=== PATIENT | female | born 1990 | race Caucasian/White ===

== ENCOUNTER 2017-04-12 22:36 | Emergency (ER) | payer MEDICAID ==
[2017-04-13 09:54] VITALS: BP 103/75; PULSE 89; RESP 17; TEMP 98.2
--- NOTE | 2017-04-13 17:40 | OBHP ---
Datetime: 04/12/2017 23:22 IP Adm Impression: , intrauterine IP Admit Plan: Observation/Evaluation Admit Comment, IP Provider: 26 yo G1PO at 27.6 weeks GA based on first trimester US, not consistent with LMP, EDC 07/06/17 presents to [facility] c/o decreased FM for last 2 days. Pt reports last fm felt at 3 pm this afternoon. States she felt FM as soon as she came to [facility]. Denies LOF, VB, abominal pain or CTX. Denies dysuria, headache or dizziness. PNC: [facility], last visit 03/19/17, next vist 04/16/17 Past obhx: G1 Past gynhx: denies hx STI. Hx abnormal pap, last pap was normal as per pt. hx ovarian cyst pmhx: PCOS pshx: ovarian cystectomy in 2004 social: denies smoking cigrettes, ETOH or recretional drug use. family hx: maternal grandfather: DMII. Meds: PNV allergies: NKDA Assessment: 26 yo IUP @ 27.6 weeks GA, presents for decreased FM. Plan: Re-assuring heart tracing. Pt reports +fm in [facility]. Has appointment at [facility] on 04/16/17 Advised for adequate hydration labor precaution given Case d/w on-call OB hospitalist Dr. James Cosme, PGY1 OB Hospitaslist media relations intern...with PGY1 I saw and examined this pt. She stated param she felt +FM. MAHN DO Extremities - PN: Normal Abdomen - PN: Normal Back - PN: Normal Lungs - PN: Normal Heart - PN: Normal Neurologic - PN: Normal HEENT - PN: Normal General - PN: Normal FHR - Baseline A Provider: 130s IP Hx Assessment: The History has been Reviewed and is Current EGA AdmitDate IP: 28.0 IP Chief Complaint: Decreased movement NICHD Variability Prov Fetus A: Moderate 6-25bpm NICHD Accel Fetus A IP Provider: 10X10 FHR Category Provider Fetus A: Category I NICHD Decel Fetus A IP Provider: None Genitourinary Exam: Normal DTRs - PN: Normal
--- NOTE | 2017-04-13 17:40 | OBDCSUM ---
Datetime: 04/12/2017 23:42 Discharge Diagnosis Prov Other: decreased movement
== END 2017-04-12 23:45 | disposition home or self-care (01) ==
LOC: H.EROB2 22:36
DX: O36.8121 Decreased fetal movements, second trimester, fetus 1 (principal); Z3A.27 27 weeks gestation of pregnancy

== ENCOUNTER 2017-07-02 15:31 | Emergency (ER) | payer MEDICAID ==
[2017-07-02 21:20] VITALS: BP 108/79; PULSE 94; RESP 18; TEMP 97.7; O2SAT 99
--- NOTE | 2017-07-03 08:25 | OBDCSUM ---
Datetime: 07/02/2017 16:36 Discharge Diagnosis, Provider: False Labor - Undelivered
--- NOTE | 2017-07-03 08:25 | OBHP ---
Datetime: 07/02/2017 16:30 IP Adm Impression: Term, intrauterine ; No Active Labor; Intact Membranes IP Admit Plan: Discharge home Admit Comment, IP Provider: 26 y/o F at 39+3 week GA with a SHIRA 07/06/17 by 1st trim US, compl ains of LOF since last night. FLuid is scant, non-bloody and white clear in color. Pt reports no CTX but explains having pelvic pressure-like pain intermittently daily. No vaginal bleeding. FM present. Pt denies fever, headache, CP, SOB, abdominal pain, urinary complaints or pruritus. NKDA Medications: PNV PN Care: Dr Plasencia at the women's center at [facility]. PN Labs: remarkable for GBS positive and Rubella Non-immune. PMHx: PCOS PSHx: denied FHx: mother with pre-diabetes SHx: denies tobacco, alcohol or rec drugs. A/P 26 y/o F with IUP at 39.3 weeks GA, not in early labor. -discharge home. -Increase water intake. -ER precautions discussed with pt. -F/U with Dr Almanzar in 2 days as planned. Case discussed with Dr Ramirez, OB elevator constructor helper Doe PGY-1 OB Hosptialist on-call. With PGY1, I saw and examined this patinet. Agree with note. DONI No evidence of ROM Pelvic Type - PN: Adequate Extremities - PN: Normal Abdomen - PN: Normal Back - PN: Normal Breast - PN: Not Done Lungs - PN: Normal Heart - PN: Normal Thyroid - PN: Normal Neurologic - PN: Normal HEENT - PN: Normal General - PN: Normal Presentation-Admit: Vertex FHR - Baseline A Provider: 145 Membranes, Provider: Intact Comments, ACOG Physical Exam: Plevic exam: Speculum with negative pooling. Nitrazine not performed a s previously positive. Ferning test was negative. Pool Provider: Negative Ferning Provider: Negative IP Hx Assessment: The History has been Reviewed and is Current EGA AdmitDate IP: 39.3 Vital Signs Provider: Reviewed IP Chief Complaint: Suspected ruptured membranes NICHD Variability Prov Fetus A: Moderate 6-25bpm NICHD Accel Fetus A IP Provider: 15X15 FHR Category Provider Fetus A: Category I Dilatation, Provider: 0 Genitourinary Exam: Normal
== END 2017-07-02 16:25 | disposition home or self-care (01) ==
LOC: H.EROB2 15:31
DX: O47.1 False labor at or after 37 completed weeks of gestation (principal); Z3A.39 39 weeks gestation of pregnancy; O26.93 Pregnancy related conditions, unspecified, third trimester; R10.2 Pelvic and perineal pain

== ENCOUNTER 2017-07-09 17:45 | Emergency (ER) | payer MEDICAID ==
--- NOTE | 2017-07-09 19:41 | OBDCSUM ---
Datetime: 07/09/2017 18:20 Discharged to, Provider: Home Follow up at, Provider: With U/S in 2 days Disch Instr Activity: Normal activity Disch Instr Diet: Regular Discharge Instructions, Provider: Routine instructions given Discharge Time: 07/09/2017 18:30 Follow up in weeks, Provider: Come in for IOL on Saturday Disch Referrals: None Discharge Diagnosis Prov Other: Reactive NST
--- NOTE | 2017-07-09 19:42 | OBHP ---
Datetime: 07/09/2017 18:10 IP Adm Impression: Term, intrauterine IP Chief Complaint Other: Non-reactive NST IP Admit Plan: Observation/Evaluation Admit Comment, IP Provider: 26 y/o F at 40+3 week GA with an SHIRA 07/06/[address] [place] [address], was sent from office due to non-reactive NST. Pt reports she felt a movement at 7 am this morning f or the last time. Pt intermittent pelvic pressure pain, no vaginal bleeding and no LOF. Pt has been s cheduled for IOL on 07/13/17 due to post-term . Pt denies fever, headache, CP, SOB, abdomina l pain, urinary complaints or pruritus. NKDA Medications: PNV PN Care: Dr Plasencia at the women's center at [facility]. PN Labs: remarkable for GBS positive and Rubella Non-immune. OBHx: PMHx: PCOS PSHx: denied FHx: mother with pre-diabetes SHx: denies tobacco, alcohol or rec drugs. A/P 26 y/o F with IUP at 40.3 weeks GA, with non-reactive NST at office. -FHT monitoring -Provide PO fluid intake. Case discussed with Dr Ramirez, OB reading intervention teacher Doe PGY-1 OB Hospitalist note : I saw this patient and reviewed NST. She deceleidn vaginal exam becasue she has no complaints. Agree with note. MAHNDO Pelvic Type - PN: Adequate Extremities - PN: Normal Abdomen - PN: Normal Breast - PN: Not Done Lungs - PN: Normal Heart - PN: Normal Thyroid - PN: Normal HEENT - PN: Normal General - PN: Normal Presentation-Admit: Vertex Contraction Comments Provider: occ Pool Provider: Negative IP Hx Assessment: The History has been Reviewed and is Current EGA AdmitDate IP: 40.3 Vital Signs Provider: Reviewed; Within Normal Limits IP Chief Complaint: Decreased movement; Other FHR Category Provider Fetus A: Category I NICHD Decel Fetus A IP Provider: None
[2017-07-09 23:08] VITALS: BP 101/79; PULSE 84; O2SAT 100
== END 2017-07-09 18:30 | disposition home or self-care (01) ==
LOC: H.EROB2 17:45
DX: O76 Abnormality in fetal heart rate and rhythm complicating labor and delivery (principal); O48.0 Post-term pregnancy; Z3A.40 40 weeks gestation of pregnancy

== ENCOUNTER 2017-07-11 14:16 | Inpatient (IN) | payer MEDICAID ==
[2017-07-11] MEDS: Lactated Ringer's 1,000 ML IV SCH ×3 (15:00→19:00)
[2017-07-11 15:14] VITALS: BMI 36.6
[2017-07-11 15:40] LABS: BASO # 0.1 K/uL (0.0-0.2); BASO % 0.4 % (0.0-2.0); EOS # 0.2 K/uL (0.0-0.7); EOS % 1.5 % (0.0-4.0); HEMOGLOBIN 12.7 g/dL (12.0-16.0); LYMPH # 2.8 K/uL (1.0-4.3); LYMPH % 19.7 % (20.0-40.0); MEAN CORPUSCULAR HGB CONC 32.5 g/dL (33.0-37.0); MEAN PLATELET VOLUME 8.4 fl (7.2-11.7); MONO # 1.1 K/uL (0.0-0.8); MONO % 8.2 % (0.0-10.0); NEUT # 9.8 K/uL (1.8-7.0); NEUT % 70.2 % (50.0-75.0); NRBC % 0.4 % (0.0-0.0); RBC 5.07 Mil/uL (3.80-5.20); RED CELL DISTRIBUTION WIDTH 16.2 % (11.5-14.5)
--- NOTE | 2017-07-11 17:56 | OBHP ---
Datetime: 07/11/2017 17:17 IP Adm Impression: Postterm, intrauterine IP Admit Plan: Initiate labor induction protocol; Observation/Evaluation Admit Comment, IP Provider: 26 y G1 at 40+5 wks w/ EDC 07/06/17 by 6 wk u/s who p/w light VB this am , also having bad pains in back and in lower abdomen that started about 2 days ago and became worse l ast night. Pt denies LOF, recent sex, reports FM. Pt also reports pain in abdomen during urination t baljit. 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 periods after weight loss, denies STDs, reports abn pap in 2008 LSIL, nl sinc e Fam hx: N/c Soc hx: Pt denies tobacco, alcohol, and illicit drug use PE: AFVSS Gen'l: Pt appears confortable Heart: RRR Chest: Lungs CTA b/l Abdomen: soft, NT, gravid Ext: NT, no edema Speculum: no blood in vault VE: /-3 at 5 pm EFM: as above [place]: difficult to discern A/P: 26 yo G1 at 40+5 wks w/ light vaginal bleeding and abdominal pain today Will admit this pt for induction of labor d/t a few variable decelerations noted GBS positive, will start penicillin for GBS prophylaxis Will start induction w/ cervidil Extremities - PN: Normal Abdomen - PN: Normal Lungs - PN: Normal Heart - PN: Normal General - PN: Normal FHR - Baseline A Provider: 150 Membranes, Provider: Intact EGA AdmitDate IP: 40.5 Vital Signs Provider: Reviewed; Within Normal Limits IP Chief Complaint: Uterine contractions; Vaginal bleeding NICHD Variability Prov Fetus A: Moderate 6-25bpm NICHD Accel Fetus A IP Provider: 15X15 FHR Category Provider Fetus A: Category II NICHD Decel Fetus A IP Provider: Variable Dilatation, Provider: 1 Effacement, Provider: 70 Station, Provider: -3 Genitourinary Exam: Normal
[2017-07-11 19:13] LABS: SQUAMOUS EPITHIAL 1 /hpf (0-5); URINE BILIRUBIN NEGATIVE (NEGATIVE); URINE BLOOD NEGATIVE (NEGATIVE); URINE CLARITY SLIGHTY-CLOUDY (Clear); URINE COLOR YELLOW (YELLOW); URINE GLUCOSE (UA) NEG (Normal); URINE LEUKOCYTE ESTERASE NEG Leu/uL (Negative); URINE PROTEIN NEGATIVE (NEGATIVE); URINE UROBILINOGEN 0.2-1.0 mg/dL (0.2-1.0)
[2017-07-11] MEDS ORDERED: Penicillin G 5 Million Unit Vial IVPB ONE (21:08)
--- NOTE | 2017-07-11 23:29 | HP ---
HISTORY OF PRESENT ILLNESS: This is a 26-year-old G1 at 40 weeks and 5 days with an EDC of 07/06/2017 by 6-week ultrasound who presents with light vaginal bleeding this a.m., also having bad pain in back and in lower abdomen that started about 2 days ago and became worse last night. The patient denies leaking of fluid and reports movement. The patient also reports pain in her abdomen during urination today. The patient receives her care with the [facility]. The patient was diagnosed with PCOS at age 11. She was on metformin 500 mg once a day and stopped it after the first trimester. In 2008, the patient had a low-grade Pap, per patient, no colpo was necessary and she has been followed up every year since and her Paps have been normal. There is diabetes in her family and her BMI was 30. The patient early one-hour Glucola done on 11/28/2016, which was 87. The patient's rubella is nonimmune. The patient is to receive the MMR vaccine . The patient has been noncompliant with her care and has missed several appointments. The patient is also an alpha thalassemia carrier. Father of baby was not tested. Also, the patient received her flu vaccine on 03/19/2017 and received her Tdap vaccine on 06/11/2017. GBS is positive, done on 2017. PAST MEDICAL HISTORY: PCOS. PAST SURGICAL HISTORY: Open right (? ) ovarian cystectomy in 2004. GYNECOLOGIC HISTORY: Menarche at 11. Monthly periods after weight loss, otherwise irregular. The patient denies any STDs and reports a low-grade LITZY Pap in 2008 and normal Paps since. FAMILY HISTORY: Father with hypertension, mother with prediabetes, and paternal grandmother with diabetes. SOCIAL HISTORY: The patient denies tobacco, alcohol, or illicit drug use. MEDICATIONS: vitamins. ALLERGIES: NO KNOWN DRUG ALLERGIES. PHYSICAL EXAMINATION: VITAL SIGNS: Afebrile and vital signs are stable. GENERAL: The patient appears comfortable, lying in bed. HEART: Regular rate and rhythm. CHEST: Lungs are clear to auscultation bilaterally. ABDOMEN: Soft, nontender, and gravid. EXTREMITIES: Nontender. No edema. SPECULUM: No blood in the vault. VAGINAL: 1 cm, 70% effaced, and -3 station at 5 p.m. EXTERNAL MONITORING: The baseline is 150 with moderate variability and positive accelerations. There does appear to be a few scattered variable decelerations throughout the strip. Tocodynamometer is difficult to discern contractions and there are appears to be irritability and occasional contractions. LABORATORY DATA: On 11/28/2016, one-hour Glucola was 87. Cystic fibrosis negative. Hepatitis B surface antigen negative. Blood type B positive. Antibody screen negative. RPR negative. Rubella nonimmune. On 12/06/2016, first trimester screen was negative. Chlamydia and gonorrhea were negative. On 03/27/2017, alpha thalassemia was positive. On 05/01/2017, HIV negative. RPR negative. One-hour Glucola was 98. On 06/11/2017, group B Streptococcus was positive. Gonorrhea and chlamydia negative. ASSESSMENT AND PLAN: This is a 26-year-old G1 at 40 weeks and 5 days with light vaginal bleeding and abdominal pain today, also complaining of abdominal pain with urination. Will admit this patient for induction of labor due to a few variable decelerations noted on the strip. Urinalysis and urine culture sent. GBS positive. Will start penicillin for GBS prophylaxis. Will start induction with Cervidil. Lucy Tabares MD MTDD
[2017-07-12] MEDS ORDERED: Bupivacaine HCl 0.25% PF (10 ml) Inj ONE ×2 (00:36→03:11)
[2017-07-12] MEDS ORDERED: Phenylephrine 10 mg/ml Inj ONE (00:38)
[2017-07-12] MEDS: Lactated Ringer's 1,000 ML IV SCH (01:00)
[2017-07-12] MEDS ORDERED: Fentanyl/Bupivacaine HCl 250 ML EPI ONE (01:37)
[2017-07-12] MEDS ORDERED: Fentanyl/Bupivacaine HCl 125 ML EPI ONE (01:40)
[2017-07-12] MEDS: Penicillin G Potassium 2.5 MU in Sodium Chloride 0.9% 100 ML IVPB SCH ×2 (02:00→05:42)
[2017-07-12] MEDS ORDERED: Lidocaine 1% Inj (20ml) ONE (05:16)
[2017-07-12] MEDS ORDERED: Oxycodone/Acetaminophen 5/325 mg Tab PO PRN ×2 (07:09→08:53)
[2017-07-12] MEDS ORDERED: Benzocaine/Menthol SPRAY TOP PRN ×2 (07:09→08:53)
--- NOTE | 2017-07-12 07:47 | OBDS ---
DELIVERY PERSONNEL Delivery Doctor: Madeleine Tabares MD Operations Business Partner: Randell Villafuerte RN, Tristian RN, Davon JAMES Anesthesiologist: Dr. Romero Resident: Dr. Sultan Cosme MATERNAL INFORMATION Delivery Anesthesia: Local; Epidural Medications in Delivery: Pitocin Placenta Cultured: No Maternal Complications: None Provider Comments: Pt progressed to complete and pushed to deliver a viable female in the bed through meconium-stained fluid at 06:33 am. Eulogio Villafuerte RN was present at the bedside. Apgars 9 and 9. Wt 7#8.6. 3420 gms. Cord doubly clamped and FOB cut the cord. Placenta delivered spontaneo usly intact w/a 3vc at 06:37am. Vagina and perineum infused w/ 1% lidocaine. Second degree tear re paired w/ 2-0 rapide and 3-0v. Bilateral periurethral abrasions were hemostatic. Pt and baby tolera edmund procedure well. Rectum intact. EBL 150 mL LABOR SUMMARY EDC: 07/06/2017 00:00 No. Babies in Womb: 1 Attempted: No Labor Anesthesia: Epidural LABOR INFORMATION Reason for Induction: Postterm Onset of Labor: 07/11/2017 15:00 Complete Dilatation: 07/12/2017 06:00 Cervical Ripening Agents: Cervidil (Annotations: Cervidil Removed ) Oxytocin: Induction Group B Beta Strep: Positive Antibiotics # of Doses: 3 Pen G Antibiotics Time of Last Dose: 0542 Steroids Given: None Reason Steroids Not Administered: Not Applicable MEMBRANES Membranes Rupture Method: Spontaneous Rupture of Membranes: 07/12/2017 06:33 Length of Rupture (hrs): 0.00 Amniotic Fluid Color: Light Meconium Amniotic Fluid Amount: Moderate Amniotic Fluid Odor: Normal STAGES OF LABOR Stage 1 hrs: 15 Stage 1 min: 0 Stage 2 hrs: 0 Stage 2 min: 33 Stage 3 hrs: 0 Stage 3 min: 4 Total Time in Labor hrs: 15 Total Time in Labor min: 37 BABY A INFORMATION Infant Delivery Date/Time: 07/12/2017 06:33 Method of Delivery: Vaginal Born in Route : No : N/A Forceps: N/A Vacuum Extraction: N/A Shoulder Dystocia : No SHOULDER DYSTOCIA BABY A Infant Delivery Date/Time: 07/12/2017 06:33 PRESENTATION/POSITION BABY A Presentation: Cephalic Cephalic Presentation: Vertex Breech Presentation: N/A PLACENTA INFORMATION BABY A Placenta Delivery Time : 07/12/2017 06:37 Placenta Method of Delivery: Spontaneous Placenta Status: Delivered SCORES BABY A Heart Rate 1 min: >100 bpm Resp Effort 1 min: Good Cry Reflex Irritability 1 min: Cough or Sneeze or Pulls Away Muscle Tone 1 min: Active Motion Color 1 min: Body [place], Extremities Blue (Annotations: Data stored by N on behalf of user) SCORE 1 MIN: 9 INFORMATION BABY A Gestational Age at Delivery: 40.6 Gestational Status: Term Outcome : Liveborn Condition : Stable Infant Sex: Female IDENTIFICATION/MEDS BABY A ID Band Number: [id number] ID Band Location: Left Leg; Left Arm WEIGHT/LENGTH BABY A Birthweight (gms): 3420 Infant Weight (lb): 7 Infant Weight (oz): 9 CORD INFORMATION BABY A No. Cord Vessels: 3 Nuchal Cord : N/A Cord Blood Taken: Yes Suction: Mouth; Nose
[2017-07-13 06:39] LABS: HEMOGLOBIN 10.6 g/dL (12.0-16.0); MEAN CELL VOLUME 77.6 fl (81.0-99.0); MEAN CORPUSCULAR HEMOGLOBIN 25.1 pg (27.0-31.0); MEAN CORPUSCULAR HGB CONC 32.4 g/dL (33.0-37.0); RBC 4.23 Mil/uL (3.80-5.20); RED CELL DISTRIBUTION WIDTH 16.3 % (11.5-14.5); WHITE BLOOD COUNT 17.5 K/uL (4.8-10.8)
--- NOTE | 2017-07-13 10:48 | OBPPN ---
Datetime: 07/13/2017 06:21 PP Pain Prov: Within normal limits PP Nausea Prov: Denies PP Flatus Prov: Yes PP BM Prov: No PP Breasts Prov: Normal PP Heart Prov: Normal PP Lungs Prov: Normal PP Abdomen/Uterus Prov: Normal PP Lochia Prov: Normal PP CVA Tenderness Prov: Normal PP Extremities Prov: Normal PP Impression Prov: Normal progression PP Plan Prov: Continue present management; consult PP Progress Note Prov: PPD 1 26 y/o female now s/p on PPD 1 seen and examined at bedside this morning. No overnigh t events. Reports pain is controlled with pain medications. Pt reports passing gas per rectum but no BM yet. Voiding freely w/o blood noted. Ambulating well w/o dizziness. Lochia is similar to menses vo lume. Pt is not the baby. Denies nausea, vomiting, fever, chills, chest pain or calf p ain. Physical Exam: General: A_O, resting comfortably in bed, NAD HEENT: oral mucosa moist. Lungs: CTA B/L, no wheezing, rhonchi or rales CVS: RRR, S1, S2 ABD: ND, +BS, firm fundus @ umbilical level. Soft, appropriate TTP. EXT: no edema, negative Mazin's sign Neuro/psych: AAOX3 Assessment: 26 y/o female now doing well on PPD 1 Plan: OOB w/ caution Regular diet Ibuprofen and percocet for pain management Senokot for constipation consults for Encourage and ambulation Anticipate discharge tomorrow Case d/w on-call OB Hospitalist Sultan Cosme, pgy-1 ob attending addendum: pt seen _ examined by me. agree /w above assessment and plan. IP PP Procedures: None Vital Signs Provider PP: Reviewed
[2017-07-14] MEDS ORDERED: Measles, Mumps, and Rubella 0.5 ML VIAL SC ONE (08:07)
[2017-07-14 19:38] VITALS: BP 110/64; PULSE 89; RESP 20; TEMP 98.4; O2SAT 98
== END 2017-07-14 12:10 | disposition home or self-care (01) | DRG 373 ==
LOC: H.EROB2 14:16 → H.L&D 17:51 → H.OB/GYN 07-12 08:39
PROVIDERS: ADMIT Obstetrics & Gynecology; ATTEND Obstetrics & Gynecology
PROC: 10E0XZZ Delivery of Products of Conception, External Approach (ICD-10-PCS; principal; 2017-07-11)
PROC: 4A1HXCZ Monitoring of Products of Conception, Cardiac Rate, External Approach (ICD-10-PCS; 2017-07-11)
PROC: 0KQM0ZZ Repair Perineum Muscle, Open Approach (ICD-10-PCS; 2017-07-11)
DX: O76 Abnormality in fetal heart rate and rhythm complicating labor and delivery (principal); D56.0 Alpha thalassemia; Z37.0 Single live birth; O70.1 Second degree perineal laceration during delivery; O77.0 Labor and delivery complicated by meconium in amniotic fluid; Z3A.40 40 weeks gestation of pregnancy; O99.824 Streptococcus B carrier state complicating childbirth; Z91.19 Patient's noncompliance with other medical treatment and regimen; Z83.3 Family history of diabetes mellitus; Z82.49 Family history of ischemic heart disease and other diseases of the circulatory system; Z79.84 Long term (current) use of oral hypoglycemic drugs

== ENCOUNTER 2017-09-02 09:01 | Emergency (ER) | payer MEDICAID ==
[2017-09-02 09:08] VITALS: BMI 34.9
--- NOTE | 2017-09-02 09:36 | ED PDOC ---
HPI: Back Time Seen by Provider: 09/02/17 09:25 History Per: Patient Current Symptoms Are (Timing): Still Present Quality Of Discomfort: Aching Severity: Mild Pain Scale Rating Of: 2 Previous Symptoms: Back Pain Associated Symptoms: None Exacerbating Factor(s): Movement Additional Complaint(s): Left sided low back pain radiating down left leg to foot. Started at end of pregnacy. No weakness or parasthesias. No urinary sxs or incontinence. No fever. No calf pain. Past Medical History Vital Signs: Last Vital Signs Temp 97.9 F 09/02/17 09:09 Pulse 64 09/02/17 09:09 Resp 20 09/02/17 09:09 BP 111/68 09/02/17 09:09 Pulse Ox 99 09/02/17 09:09 - Medical History PMH: No Chronic Diseases Denies: Depression, Diabetes, HTN - Family History Family History: States: Unknown Family Hx - Immunization History Hx Tetanus Toxoid Vaccination: No Hx Influenza Vaccination: No Hx Pneumococcal Vaccination: No - Home Medications Home Medications: Ambulatory Orders Medication Instructions Recorded Vit Calc,Iron,Folic 1 tab PO DAILY #30 tablet 11/10/16 [ Vitamins] Cefpodoxime [Vantin] 100 mg PO BID #14 tab 01/22/17 Ibuprofen [Motrin Tab] 600 mg PO Q6 PRN tab 07/14/17 Sennosides A and B [Senokot Tab] 17.2 mg PO HS tab 07/14/17 Cyclobenzaprine [Cyclobenzaprine 10 mg PO TID #10 tab 09/02/17 HCl] Naproxen [Naprosyn] 500 mg PO Q12H #20 tab 09/02/17 - Allergies Allergies/Adverse Reactions: Allergies Allergy/AdvReac Type Severity Reaction Status Date / Time No Known Allergies Allergy Verified 01/22/17 17:00 Review of Systems Constitutional: Negative for: Fever, Chills Genitourinary Female: Negative for: Dysuria, Frequency Musculoskeletal: Positive for: Back Pain Neurological: Negative for: Weakness, Numbness Physical Exam - Physical Exam Appears: Positive for: Non-toxic, No Acute Distress Skin: Positive for: Normal Color, Warm, DRY Back: Positive for: Normal Inspection, Other (Left paravertebral tendeness lumbar area.). Negative for: Vertebral Tenderness Extremity: Negative for: Calf Tenderness, Swelling Neurologic/Psych: Positive for: Alert, Oriented. Negative for: Motor/Sensory Deficits - ECG O2 Sat by Pulse Oximetry: 99 Disposition - Clinical Impression Clinical Impression: Radiculopathy of lumbar region - Patient ED Disposition Is Patient to be Admitted: No Counseled Patient/Family Regarding: Diagnosis, Need For Followup, Rx Given - Disposition [facility]errals: [facility] [Outside] Disposition: Routine/Home Disposition Time: 09:36 Condition: FAIR Prescriptions: Cyclobenzaprine [Cyclobenzaprine HCl] 10 mg PO TID #10 tab Naproxen [Naprosyn] 500 mg PO Q12H #20 tab Instructions: Radiculopathy
[2017-09-02 09:52] VITALS: BP 128/78; PULSE 78; RESP 19; TEMP 97; O2SAT 98
== END 2017-09-02 10:00 | disposition home or self-care (01) ==
LOC: H.ER 09:01
DX: M54.16 Radiculopathy, lumbar region (principal)

== ENCOUNTER 2018-03-25 09:10 | Emergency (ER) | payer MEDICAID ==
[2018-03-25 09:37] VITALS: O2SAT 100
[2018-03-25 09:38] VITALS: BMI 32.8
--- NOTE | 2018-03-25 12:44 | US ---
Date of service: 03/25/2018 HISTORY: Intermittent left lower extremity pain 8 months duration. PRIORS: None. FINDINGS: 2-D, color and duplex Doppler analysis of the lower extremity venous circulation using routine protocol from the femoral veins through the popliteal veins. Venous compressibility: Normal. Flow and augmentation patterns: Normal. Visualized veins upper third of calf: Normal. Cho cyst: None. IMPRESSION: No sonographic or Doppler evidence for DVT in left lower extremity.
--- NOTE | 2018-03-25 12:55 | ED PDOC ---
Lower Extremity Pain/Injury Time Seen by Provider: 03/25/18 10:25 Chief Complaint (Nursing): Lower Extremity Problem/Injury History Per: Patient Additional Complaint(s): Pt. states for the past 2 weeks she's had atraumatic L calf pain. Reports pain is worse with movement and that pain is localized to the L leg. Denies trauma, fever, numbness, tingling, rash, chest pain, SOB, hx of DVT or PE. Past Medical History Reviewed: Historical Data, Nursing Documentation, Vital Signs Vital Signs: Last Vital Signs Temp 97 F L 03/25/18 09:36 Pulse 57 L 03/25/18 09:36 Resp 18 03/25/18 09:36 BP 113/74 03/25/18 09:36 Pulse Ox 100 03/25/18 09:36 - Medical History PMH: Denies: Depression, Diabetes, HTN - Family History Family History: States: No Known Family Hx - Immunization History Hx Tetanus Toxoid Vaccination: No Hx Influenza Vaccination: No Hx Pneumococcal Vaccination: No - Home Medications Home Medications: Ambulatory Orders Medication Instructions Recorded RX: Vit Calc,Iron,Folic 1 tab PO DAILY #30 tablet 11/10/16 [ Vitamins] RX: Cefpodoxime [Vantin] 100 mg PO BID #14 tab 01/22/17 RX: Ibuprofen [Motrin Tab] 600 mg PO Q6 PRN tab 07/14/17 RX: Sennosides A and B [Senokot 17.2 mg PO HS tab 07/14/17 Tab] Cyclobenzaprine [Cyclobenzaprine 10 mg PO TID #10 tab 09/02/17 HCl] Naproxen [Naprosyn] 500 mg PO Q12H #20 tab 09/02/17 Meloxicam [Mobic] 7.5 mg PO DAILY PRN #10 tab 03/25/18 - Allergies Allergies/Adverse Reactions: Allergies Allergy/AdvReac Type Severity Reaction Status Date / Time No Known Allergies Allergy Verified 01/22/17 17:00 Wells Criteria for PE - Wells Criteria for Pulmonary Embolism Clinical Signs and Symptoms of DVT: No P.E is #1 Diagnosis, or Equally Likely: No Heart Rate >100: No Immobilization at least 3 days;Surgery previous 4 weeks: No Previous, objectively diagnosed PE or DVT: No Hemoptysis: No Malignancy w/treatment within 6 months, or palliative: No Total Score: 0 Review of Systems ROS Statement: Except As Marked, All Systems Reviewed And Found Negative Musculoskeletal: Positive for: Leg Pain Physical Exam - Physical Exam Appears: Positive for: Well, Non-toxic, No Acute Distress Skin: Positive for: Normal Color, Warm. Negative for: Rash Eye Exam: Positive for: Normal appearance Pulses-Dorsalis Pedis (L): 2+ Pulses-Dorsalis Pedis (R): 2+ Extremity: Positive for: Normal ROM (FROM actively of b/l lower extremities), Capillary Refill (< 2 seconds of b/l lower extremities), Other (b/l lower extrem ities without swelling, deformity, warmth, erythema, break in skin integrity, lesions, tenderness). Negative for: Pedal Edema, Calf Tenderness (b/l) Neurologic/Psych: Positive for: Alert, Oriented (x3), Gait (steady, unassisted). Negative for: Aphasia, Facial Droop - Laboratory Results Result Diagrams: 03/25/18 14:01 03/25/18 14:01 - ECG O2 Sat by Pulse Oximetry: 100 - Progress ED Course And Treament: Duplex RLE vein, tib/fib (right) x-ray, labs, ultram ordered. On re-evaluation, pt. states pain has improved. Informed of results. Advised to f/u with PMD or ortho for further evaluation but is to return to ED immediately if ysmptoms worsen. Disposition - Clinical Impression Clinical Impression: Leg pain - Patient ED Disposition Is Patient to be Admitted: No - Disposition Referrals: [facility] [Outside] [facility], located within [facility] [Outside] Abram Nichols III, MD [Staff Provider] - Disposition: Routine/Home Disposition Time: 14:58 Condition: STABLE Additional Instructions: FOLLOW UP WITH PMD FOR FURTHER EVALUATION RETURN TO ED IMMEDIATELY IF SYMPTOMS WORSEN ISAURA WAGONER, thank you for letting us take care of you today. Your provider was Milagro Arnold MD and you were treated for LT LEG PAIN. The emergency medical care you received today was directed at your acute symptoms. If you were prescribed any medication, please fill it and take as directed. It may take several days for your symptoms to resolve. Return to the Emergency Department if your symptoms worsen, do not improve, or if you have any other problems. Please contact your doctor or call one of the physicians/clinics you have been referred to that are listed on the Patient Visit Information form that is included in your discharge packet. Bring any paperwork you were given at discharge with you along with any medications you are taking to your follow up visit. Our treatment cannot replace ongoing medical care by a primary care provider outside of the emergency department. Thank you for allowing the [facility] team to be part of your care today. If you had an X-Ray or CT scan: A Radiologist will review the ED reading if any change in treatment is needed we will contact you. If you had a blood, urine, or wound culture: It will take several days for the results, if any change in treatment is needed we will contact you. If you had an STI test: It will take 48 hours for the results. Please call after 1 week if you have not heard back. Prescriptions: Meloxicam [Mobic] 7.5 mg PO DAILY PRN #10 tab PRN Reason: Pain, Mild (1-3) Instructions: Muscle and Bone Pain (DC) Forms: [employer] ([place]an) Print Language: WELSH
--- NOTE | 2018-03-25 13:52 | RAD ---
Date of service: 03/25/2018 PROCEDURE: Radiographs of the left tibia and fibula. HISTORY: pain COMPARISON: None available. TECHNIQUE: Frontal and lateral views obtained. FINDINGS: BONES: No fracture or destructive lesion. JOINT SPACES: Unremarkable. OTHER FINDINGS: None. IMPRESSION: Unremarkable radiographs of the left tibia and fibula.
[2018-03-25 14:05] LABS: BASO # 0.1 K/uL (0.0-0.2); BASO % 0.8 % (0.0-2.0); EOS # 0.4 K/uL (0.0-0.7); EOS % 5.6 % (0.0-4.0); HEMOGLOBIN 13.4 g/dL (12.0-16.0); LYMPH # 3.2 K/uL (1.0-4.3); LYMPH % 39.4 % (20.0-40.0); MEAN CELL VOLUME 81.6 fl (81.0-99.0); MEAN CORPUSCULAR HGB CONC 31.8 g/dL (33.0-37.0); MEAN PLATELET VOLUME 7.8 fl (7.2-11.7); MONO # 0.5 K/uL (0.0-0.8); NEUT # 3.9 K/uL (1.8-7.0); NEUT % 48.2 % (50.0-75.0); NRBC % 0.1 % (0.0-0.0); RBC 5.16 Mil/uL (3.80-5.20); RED CELL DISTRIBUTION WIDTH 14.5 % (11.5-14.5); WHITE BLOOD COUNT 8.1 K/uL (4.8-10.8)
[2018-03-25 14:14] LABS: ALB/GLOB RATIO 1.2 (1.0-2.1); ALBUMIN 4.5 g/dL (3.5-5.0); ALT/SGPT 29 U/L (9-52); AST/SGOT 23 U/L (14-36); BLOOD UREA NITROGEN 14 mg/dl (7-17); CALCIUM 9.8 mg/dL (8.4-10.2); GFR NON-AFRICAN AMERICAN > 60
[2018-03-25 15:07] VITALS: BP 118/68; PULSE 64; RESP 16; TEMP 97.2
== END 2018-03-25 15:05 | disposition home or self-care (01) ==
LOC: H.ER 09:10
DX: M79.606 Pain in leg, unspecified (principal)